=== PATIENT | female | born 2000 | race Caucasian/White ===

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

== ENCOUNTER 2020-05-19 08:22 | Outpatient (CLI) | payer OTHER ==
[2020-05-19 16:40] LABS: SARS-CoV-2 MS2 Positive; SARS-CoV-2 N Gene Negative; SARS-CoV-2 S Gene Negative; SARS-CoV-2 by NAA Not Detected (NotDetected); SARS-CoV-2 orf1ab Negative
== END 2020-05-19 08:23 | disposition home or self-care (01) ==
LOC: LABSCS 08:22
PROVIDERS: ATTEND Family Medicine
DX: Z20.828 Contact with and (suspected) exposure to other viral communicable diseases (principal)
CPT/HCPCS: 87635; U0003

== ENCOUNTER 2020-05-22 08:13 | Day surgery (SDC) | payer OTHER ==
[2020-05-22 08:58] VITALS: BMI 36.3
[2020-05-22] MEDS ORDERED: hydrALAZINE 20 MG/ML VIAL SLOW IVP PRN (09:35)
--- NOTE | 2020-05-23 12:23 | SS ---
DATE OF ADMISSION: 05/22/2020 DATE OF DISCHARGE: 05/22/2020 REGULAR PHYSICIAN: Ubaldo Melo MD EVALUATING PHYSICIAN: Melo Wray MD CHIEF COMPLAINT: Contractions at home. HISTORY OF PRESENT ILLNESS: Ms. Sprague is a 19-year-old, G1, P0 with an estimated date of confinement of 05/30/2020, who presents complaining of contractions since last evening. She denies ruptured membranes or vaginal bleeding. Her care has been with Dr. Melo and has been complicated only by gestational diabetes, requiring diet control only. PAST MEDICAL HISTORY: None. PAST SURGICAL HISTORY: None. CURRENT MEDICATIONS: vitamins. SOCIAL HISTORY: Denies tobacco, alcohol, or drug use. ALLERGIES: NO KNOWN ALLERGIES. FAMILY HISTORY: Unremarkable. REVIEW OF SYSTEMS: Denies nausea, vomiting, fever, chills, ruptured membranes, or vaginal bleeding. PHYSICAL EXAMINATION: VITAL SIGNS: Blood pressure is 133/85. She is afebrile. GENERAL: She is pleasant and in no distress. ABDOMEN: Soft, nontender, and gravid. Vitiligo is seen across her abdomen. Exam by the labor nurse shows the cervix to be 1 cm dilated, 50% effaced with the vertex at the -2 station. heart rate tracing is stable with no decelerations. Good [id number] variability is seen. Intermittent contractions are seen with marked irritability and contractions approximately every 5 minutes that are mild to moderate to palpation. ASSESSMENT: 1. 38 and 6/7th week intrauterine . 2. Possible latent phase labor, no evidence of active labor at this time. PLAN: The patient will be dismissed to home. Labor precautions were reviewed with her in detail. She is COVID negative and has a scheduled induction on 05/24/[address] Melo. She voiced understanding of her discharge instructions and was sent home in good condition. Job ID: [id number]
== END 2020-05-22 09:55 | disposition home or self-care (01) ==
LOC: L&D/OP 08:13
PROVIDERS: ATTEND Family Medicine
DX: O47.1 False labor at or after 37 completed weeks of gestation (principal); Z3A.38 38 weeks gestation of pregnancy
CPT/HCPCS: 99282

== ENCOUNTER 2020-05-24 08:09 | Inpatient (IN) | payer OTHER ==
[2020-05-24 08:49] VITALS: BMI 36.3
[2020-05-24] MEDS ORDERED: Promethazine HCl 25 MG/ML VIAL IM PRN ×2 (08:55→15:56)
[2020-05-24] MEDS ORDERED: Acetaminophen 500 MG TAB PO PRN (08:55)
[2020-05-24] MEDS ORDERED: hydrALAZINE 20 MG/ML VIAL SLOW IVP PRN (08:55)
[2020-05-24] MEDS ORDERED: Ondansetron PF 4 MG/2 ML Vial IVP PRN ×2 (08:55→15:56)
[2020-05-24] MEDS ORDERED: NS / Oxytocin 40 units/1000ml 1,000 ML IV PRN (08:55)
[2020-05-24] MEDS ORDERED: HYDROcodone/Acetaminophen 5/325 mg Tablet PO PRN ×2 (08:55)
[2020-05-24] MEDS ORDERED: Butorphanol Tartrate 1 MG/ML VIAL SLOW IVP PRN (08:55)
[2020-05-24] MEDS ORDERED: Lidocaine 1% (PF) 30 ML VIAL SC PRN (08:55)
[2020-05-24] MEDS ORDERED: Ibuprofen 800 MG TAB PO PRN (08:55)
[2020-05-24] MEDS ORDERED: Penicillin G Potassium 5 MILL.UNITS in Sodium Chloride 0.9% 100 ML IVPB SCH (09:00)
[2020-05-24] MEDS ORDERED: NS w/ Oxytocin 10 units 500 ML IV SCH (09:00)
[2020-05-24] MEDS ORDERED: Lactated Ringer's 1,000 ML IV SCH ×2 (09:00)
--- NOTE | 2020-05-24 09:07 | PDOC.LDHP ---
Labor and Delivery H&P Chief complaint: contractions HPI: 19 yo LAF presents c/o regular UCs. Seen 2 days ago with UCs, 1 cm at that time. Denies bleeding or SROM. Current gestational age (weeks): 39 Due date: 05/30/20 Dating criteria: last menstrual period Grav: 1 Para: 0 OB History Details: PNC with Dr. Melo, GDM on diet alone. Current complications: gestational diabetes Abnormal US findings: No Past Medical History: none Current medications: pre-maury vitamins Previous surgical history: none Allergies/Adverse Reactions: Allergies Allergy/AdvReac Type Severity Reaction Status Date / Time No Known Allergies Allergy Verified 05/24/20 08:45 Social history: none - Physical Exam Vital signs reviewed and normal: yes General: NAD Heart: RRR Lungs: CTAB Abdomen: gravid Extremeties: trace edema FHT: category 1 Tower contractions every: UCs q 3-5 - Vaginal Exam cm dilated: 4 Effacement: 90% Station: 0 - OB Labs GBS: positive - Assessment L&D Assessment: term patient in labor - Plan Plan: admit to L&D, labor augmentation if indicated, GBS antibiotic prophylaxis , informed consent obtained, anesthesia consult for pain management, other (Dr. Melo notified of admit.)
[2020-05-24 09:50] LABS: Hemoglobin 11.5 g/dL (12.0-16.0); Mean Corpuscular HGB CONC 31.8 g/dL (32.0-36.0); Mean Corpuscular Hemoglobin 23.5 pg (25.0-35.0); Mean Platelet Volume 8.9 fL (7.4-10.4); Platelet Count 334 thou/uL (130-400); RBC Distribution Width 14.6 % (11.5-14.5); Red Blood Cell (RBC) Count 4.91 mill/uL (4.00-5.20); White Blood Cell (WBC) Count 11.6 thou/uL (4.8-10.8)
[2020-05-24 10:38] LABS: Syphilis Antibody Nonreactive (Nonreactive); Syphilis Antibody Index 0.03 S/CO (<1.00 Non-Reactive)
[2020-05-24 10:39] LABS: HBSAg Index 0.12 S/CO (0-0.99); Hep B Surf Ag Non-Reactive S/CO (NonReactive)
[2020-05-24] MEDS: Penicillin G 2.5 MILL.units 2.5 MILL.UNITS in Premix Bag 1 BAG IVPB SCH ×2 (13:44→22:36)
[2020-05-24] MEDS ORDERED: Fentanyl 4 mcg/Bup 0.1% Cadd 100 ML ONE (14:46)
[2020-05-24] MEDS ORDERED: diphenhydrAMINE 50 MG/ML VIAL IVP PRN (15:56)
[2020-05-24] MEDS ORDERED: Acetaminophen 325 MG TAB PO PRN (15:56)
[2020-05-24] MEDS ORDERED: Lactated Ringer's 500 ML IV PRN (15:56)
[2020-05-24] MEDS ORDERED: Naloxone HCl 0.4 mg/ml Vial IVP PRN ×2 (15:56)
[2020-05-24] MEDS ORDERED: EPHEDRINE 25 MG/5 ML SYRINGE SLOW IVP PRN (15:56)
[2020-05-24] MEDS ORDERED: Communication Order-Pharmacy FS SCH (16:00)
[2020-05-24] MEDS ORDERED: Fentanyl 4 mcg/Bupivacaine 0.1% Cassette 100 ML EPIDURAL SCH (16:00)
--- NOTE | 2020-05-24 16:04 | PDOC.EVN ---
Event Note - Event Note Event Note: Asked to AROM by Dr. Melo. Comfortable with epidural. SVE 7/C/0 vtx. AROM clear. FHTs stable UCs q 3-4 mins. Pit at 6 mu/min. Dr. Melo aware.
[2020-05-24] MEDS ORDERED: cloNIDine 0.1 MG TAB PO PRN (19:02)
[2020-05-24] MEDS ORDERED: NS / Oxytocin 40 units/1000ml 1,000 ML IV SCH (21:19)
[2020-05-24] MEDS ORDERED: Lanolin Ointment 7 GM TUBE TOP PRN (21:19)
[2020-05-24] MEDS ORDERED: Milk Of Magnesia 30 ML UDCUP PO PRN (21:19)
[2020-05-24] MEDS ORDERED: Bisacodyl 10 MG SUPP PR PRN (21:19)
[2020-05-24] MEDS ORDERED: Docusate Calcium (SURFAK) 240 MG CAP PO SCH (21:30)
[2020-05-24] MEDS: Ibuprofen 800 MG TAB PO SCH (21:57)
[2020-05-24] MEDS: hydrALAZINE 20 MG/ML VIAL SLOW IVP SCH (23:14)
[2020-05-24] MEDS ORDERED: Benzocaine-Menthol 82.5 ML CAN TOP PRN (23:27)
[2020-05-24] MEDS: HYDROcodone/Acetaminophen 5/325 mg Tablet PO PRN (23:30)
[2020-05-25] MEDS: Ibuprofen 800 MG TAB PO SCH ×3 (04:39→21:11)
[2020-05-25] MEDS ORDERED: Adacel (T-DAP) 0.5 ML SYRINGE IM ONE (09:00)
[2020-05-25] MEDS: Ferrous Sulfate 325 MG TAB PO SCH ×2 (09:15→17:06)
[2020-05-25] MEDS: Prenatal Vitamin 1 TAB PO SCH (09:16)
[2020-05-25] MEDS: Docusate Calcium (SURFAK) 240 MG CAP PO SCH ×2 (09:17→21:11)
[2020-05-25] MEDS: HYDROcodone/Acetaminophen 5/325 mg Tablet PO PRN ×2 (09:18→15:44)
[2020-05-25] MEDS ORDERED: Bupivacaine/Epinephrine 0.25% 30 ML VIAL ONE (16:29)
[2020-05-26] MEDS: Ibuprofen 800 MG TAB PO SCH ×2 (06:19→14:02)
[2020-05-26 08:16] VITALS: BP 121/58; TEMP 98.3
[2020-05-26] MEDS: Prenatal Vitamin 1 TAB PO SCH (08:55)
[2020-05-26] MEDS: Ferrous Sulfate 325 MG TAB PO SCH ×2 (08:55→17:25)
[2020-05-26] MEDS: Docusate Calcium (SURFAK) 240 MG CAP PO SCH (08:55)
[2020-05-26] MEDS: HYDROcodone/Acetaminophen 5/325 mg Tablet PO PRN (08:56)
== END 2020-05-26 17:50 | disposition home or self-care (01) | DRG 807 ==
LOC: L&D/OP 08:09 → L&D 11:41 → 3SW 21:51
PROVIDERS: ADMIT Family Medicine; ATTEND Family Medicine
PROC: 10E0XZZ Delivery of Products of Conception, External Approach (ICD-10-PCS; principal; 2020-05-24)
PROC: 10907ZC Drainage of Amniotic Fluid, Therapeutic from Products of Conception, Via Natural or Artificial Opening (ICD-10-PCS; 2020-05-24)
DX: O24.420 Gestational diabetes mellitus in childbirth, diet controlled (principal); Z37.0 Single live birth; Z3A.39 39 weeks gestation of pregnancy
CPT/HCPCS: 36415; 51702; 85027; 86780; 86850; 86900; 86901; 87340; 99285; J0595; J2540; J2590; J3490

== ENCOUNTER 2020-06-21 14:01 | Emergency (ER) | payer OTHER ==
[2020-06-22 12:42] LABS: SARS-CoV-2 MS2 Positive; SARS-CoV-2 N Gene Negative; SARS-CoV-2 S Gene Negative; SARS-CoV-2 by NAA Not Detected (NotDetected); SARS-CoV-2 orf1ab Negative
== END 2020-06-21 14:38 | disposition home or self-care (01) ==
LOC: ERS 14:01
DX: R19.7 Diarrhea, unspecified (principal); R05 Cough; R06.02 Shortness of breath; Z20.828 Contact with and (suspected) exposure to other viral communicable diseases
CPT/HCPCS: 87635; 99284; U0003

== ENCOUNTER 2021-11-05 17:55 | Emergency (ER) | payer OTHER ==
[2021-11-05] MEDS ORDERED: HYDROcodone/Acetaminophen 5/325 mg Tablet ONE (19:06)
== END 2021-11-05 19:48 | disposition home or self-care (01) ==
LOC: ERS 17:55
DX: S39.012A Strain of muscle, fascia and tendon of lower back, initial encounter (principal); X58.XXXA Exposure to other specified factors, initial encounter
CPT/HCPCS: 99283

== ENCOUNTER 2022-01-30 11:17 | Emergency (ER) | payer OTHER ==
[2022-01-30] MEDS ORDERED: diphenhydrAMINE 50 MG/ML VIAL ONE (13:52)
[2022-01-30] MEDS ORDERED: Ketorolac Tromethamine 30 MG/ML VIAL ONE (13:52)
[2022-01-30] MEDS ORDERED: Metoclopramide HCl 10 MG/2 ML VIAL ONE (13:53)
== END 2022-01-30 15:16 | disposition home or self-care (01) ==
LOC: ERS 11:17
DX: R51.9 Headache, unspecified (principal); L08.9 Local infection of the skin and subcutaneous tissue, unspecified
CPT/HCPCS: 70450; 96365; 96375; J1200; J1885; J2765

== ENCOUNTER 2022-09-16 17:39 | Emergency (ER) | payer OTHER ==
[2022-09-16] MEDS ORDERED: Acetaminophen 325 MG TAB ONE (19:15)
[2022-09-16 19:46] LABS: MONO NEGATIVE CONTROL ZONE White (Negative) (White); MONO POSITIVE CONTROL Pink Line (Positive) (PINK/RED); Mononucleosis NEGATIVE (NEGATIVE)
== END 2022-09-16 20:30 | disposition home or self-care (01) ==
LOC: ERS 17:39
DX: B34.9 Viral infection, unspecified (principal); F17.290 Nicotine dependence, other tobacco product, uncomplicated; Z20.822 Contact with and (suspected) exposure to COVID-19
CPT/HCPCS: 36415; 86308; 87081; 87430; 87804; 99283; U0003; U0005

== ENCOUNTER 2022-12-16 22:56 | Emergency (ER) | payer OTHER ==
[2022-12-17 04:04] LABS: Pregnancy Test - Urine (BHCG) Negative (Negative)
[2022-12-17 04:05] LABS: Pregu Control Background? CLEAR/WHITE (CLR/WHITE); Pregu Control Bar Appear? YES (CONTROL BAR); Specific Gravity 1.037 (1.002-1.036)
== END 2022-12-17 05:14 | disposition home or self-care (01) ==
LOC: ERS 22:56
DX: S70.02XA Contusion of left hip, initial encounter (principal); F17.290 Nicotine dependence, other tobacco product, uncomplicated
CPT/HCPCS: 81025